=== PATIENT | female | born 1990 | race American Indian/Alaskan Native ===

== ENCOUNTER 2018-05-12 13:30 | Outpatient (CLI) | payer OTHER ==
[2018-05-12 15:00] LABS: Basophils % (Auto) 0.3 % (0.0-1.8); Eosinophils # (Auto) 0.1 K/mm3 (0.0-0.4); Eosinophils % (Auto) 0.8 % (0.0-4.3); Hematocrit 38.7 % (30.3-42.9); Hemoglobin 13.4 gm/dl (10.1-14.3); Lymphocytes # (Auto) 0.9 K/mm3 (1.2-5.4); Lymphocytes % (Auto) 13.7 % (13.4-35.0); Mean Corpuscular HGB Conc 35 % (30-34); Mean Corpuscular Hemoglobin 29 pg (28-32); Mean Corpuscular Volume 83 fl (79-97); Monocytes # (Auto) 0.7 K/mm3 (0.0-0.8); Platelet Count 186 K/mm3 (140-440); Red Blood Count 4.65 M/mm3 (3.65-5.03); Red Cell Distribution Width 14.4 % (13.2-15.2)
[2018-05-12 15:13] VITALS: BP 120/57
[2018-05-12 15:14] LABS: Alanine Aminotransferase 16 units/L (7-56); Uric Acid 5.1 mg/dL (3.5-7.6)
[2018-05-12 15:42] LABS: Bilirubin,Urine NEG (Negative); Blood,Urine NEG (Negative); Color,Urine Straw (Yellow); Protein,Urine <15 mg/dL mg/dL (Negative); Urobilinogen,Urine < 2.0 mg/dL (<2.0); WBC,Urine < 1.0 /HPF (0.0-6.0)
--- NOTE | 2018-05-12 18:25 | Ultrasound Report ---
FINAL REPORT EXAM: US OB BPP WO NON-STRESS HISTORY: bpp TECHNIQUE: Ultrasound examination of the gravid uterus for biophysical profile evaluation of the fetus PRIORS: 05/04/2018 FINDINGS: There is a single viable intrauterine with documented cardiac activity. The amniotic fluid volume is normal. heart rate: 138 bpm Amniotic fluid index: 19.0 cm position: Cephalic Placental position: Anterior Evaluation for biophysical profile yields the following score as reported by technologist from real-time exam: respiratory motion (minimum one episode): 2 Gross body movement (minimum 3 movements): 2 tone (minimum one flexion and extension): 2 Amniotic fluid volume (at least 2 cm pocket in vertical diameter): 2 IMPRESSION: Single viable intrauterine with 8/8 biophysical profile score during the sonographic evaluation
--- NOTE | 2018-05-12 18:56 | Ultrasound Report ---
FINAL REPORT EXAM: US OB LIMITED HISTORY: hitesh TECHNIQUE: Ultrasound evaluation of the gravid uterus PRIORS: Biophysical profile 05/12/2018 FINDINGS: There is a single viable intrauterine with documented cardiac activity. Heart rate: 138 beats per minute position: Cephalic Amniotic fluid index: 19.0cm IMPRESSION: Amniotic fluid index 19.0 cm.
== END 2018-05-12 18:34 | disposition home or self-care (01) ==
LOC: TRG 13:30
PROVIDERS: ATTEND Obstetrics & Gynecology
DX: O47.03 False labor before 37 completed weeks of gestation, third trimester (principal); Z3A.35 35 weeks gestation of pregnancy
CPT/HCPCS: 36415; 76815; 76819; 81001; 82565; 83615; 84450; 84460; 84550; 85025

== ENCOUNTER 2020-10-22 15:11 | Inpatient (IN) | payer OTHER ==
[2020-10-22] MEDS ORDERED: LACTATED RINGERS 1,000 ML ONE (15:13)
--- NOTE | 2020-10-22 18:07 | History and Physical Report ---
History of Present Illness Date of examination: 10/22/20 Date of admission: 10/22/20 15:11 Chief complaint: Presents for scheduled induction of labor for GDM. History of present illness: Early entry to care at 11 1/7 weeks to [facility]. course complicated by GDM (diet controlled; following with [facility]), labile BPs (baseline labs within normal limits; taking ASA 81 mg daily), and pericardial effusion (3mm noted by [facility] at 31 weeks). Past History Past Medical History: other (Vitamin D deficiency) Past Surgical History: no surgical history LASER ENGINEER History: herpes (HSV2 positive ) Family/Genetic History: hypertension (paternal grandmother) Social history: no significant social history - Obstetrical History Expected Date of Delivery: 10/27/20 Actual Gestation: 39 Week(s) 2 Day(s) : 2 Para: 1 Hx # Term Pregnancies: 1 Number of Pregnancies: 0 Spontaneous Abortions: 0 Induced : 0 Number of Living Children: 1 #1 Gender: Male year: 2020 Birthweight: 3.572 kg Method of Delivery: Vaginal Gestational age at delivery: 38 Complications: none Medications and Allergies Allergies Allergy/AdvReac Type Severity Reaction Status Date / Time No Known Allergies Allergy Verified 05/16/18 16:07 Home Medications Medication Instructions Recorded Confirmed Last Taken Type Aspirin [Aspirin BABY CHEW TAB] 81 mg PO QDAY 05/16/18 10/22/20 10/22/20 10:00 History 1 tab Formula Tablet 1 tab PO DAILY 05/29/18 10/22/20 10/22/20 10:00 History 500 mg Valtrex 500 mg PO BID 05/29/18 10/22/20 10/22/20 10:00 History Review of Systems All systems: negative - Vital Signs Vital signs: Vital Signs Temp Pulse Resp BP Pulse Ox 98.0 F 80 18 135/75 98 10/22/20 15:21 10/22/20 15:21 10/22/20 15:21 10/22/20 15:21 10/22/20 15:21 Temp Pulse Resp BP Pulse Ox 98.0 F 80 18 135/75 98 10/22/20 15:21 10/22/20 15:21 10/22/20 15:21 10/22/20 15:10/22/20 15:21 - Physical Exam Breasts: Positive: normal Cardiovascular: Regular rate Lungs: Positive: Clear to auscultation, Normal air movement Abdomen: Positive: normal appearance, soft Genitourinary (Female): Positive: normal external genitalia, normal perenium Vagina: Positive: normal moisture Uterus: Positive: enlarged Anus/Rectum: Positive: normal perianal skin Extremities: Positive: normal - Obstetrical FHR: category 2 FHR comments: Minimal variability, FHR baseline 146, no accels, no decels. Variability improved with left lateral maternal positioning. Uterine Contraction Monitor Mode: External Cervical Dilatation: 3 (intact) Cervical Effacement Percentage: 40 station: -4 Uterine Contraction Frequency (min): 2-4 Uterine Contraction Duration: 60-90 Uterine Contraction Pattern: Irregular Uterine Tone Measurement Phase: Resting Uterine Contraction Intensity: Mild Results All other labs normal. Assessment and Plan A: IUP at 39 2/7 weeks Category II tracing GDM A1 Pericardial Effusion GBS Negative P: Admit to L&D per routine orders Accuchecks q 6 hrs Pitocin Induction Consult NICU for delivery regarding pericardial effusion
[2020-10-22] MEDS ORDERED: LIDOCAINE (2%) 20 MG/1 ML VIAL 20 ML MDV INFILTRATI ONE (18:10)
[2020-10-22] MEDS ORDERED: ePHEDrine SULFATE 50 MG/1 ML INJ IV PRN (18:10)
[2020-10-22] MEDS ORDERED: MINERAL OIL 30 ML ORAL LIQD PO PRN (18:10)
[2020-10-22] MEDS ORDERED: TERBUTALINE 1 MG/1 ML INJ SUB-Q PRN (18:10)
[2020-10-22 18:42] LABS: Hemoglobin 13.8 gm/dl (10.1-14.3); Mean Corpuscular HGB Conc 35 % (30-34); Mean Corpuscular Volume 84 fl (79-97); Platelet Count 162 K/mm3 (140-440); Red Blood Count 4.78 M/mm3 (3.65-5.03); Red Cell Distribution Width 13.8 % (13.2-15.2)
[2020-10-22] MEDS ORDERED: OXYTOCIN DRIP 30 UNITS/500 ML BAG IV SCH ×2 (19:00)
[2020-10-22] MEDS: LACTATED RINGERS 1,000 ML IV SCH (23:26)
[2020-10-23] MEDS: BUTORPHANOL 2 MG/1 ML INJ IV PRN ×3 (03:29→15:54)
--- NOTE | 2020-10-23 14:02 | Progress Note ---
Assessment and Plan A: IUP@ 39.3 wks IOL for GDM (diet controlled) Hx of Laible b/ps pericardial eff 3mm@ 31 wks P: Continue monitoring Alert NICU Start Pitocin per protocal Pain med /Epidural prn Anticipate Subjective - Subjective Date of service: 10/23/20 Principal diagnosis: IUP 39.3 wks Patient reports: movement normal Objective - Vital Signs Vital Signs: Vital Signs - 12hr 10/23/20 10/23/20 10/23/20 03:29 06:45 06:46 Temperature 98 F Pulse Rate 55 L 55 L Respiratory 20 20 Rate Blood Pressure 146/91 136/82 Blood Pressure 136/82 [Left] 10/23/20 10/23/20 10/23/20 07:01 11:23 13:37 Temperature 98.0 F 98.3 F Pulse Rate 63 66 Respiratory 18 18 18 Rate Blood Pressure 136/78 126/80 Blood Pressure 136/78 126/80 [Left] - Exam Breasts: normal Abdomen: Present: normal appearance, soft, normal bowel sounds, other (gravid) Vulva: both: normal Uterus: Present: normal, other (gravid) FHR: auscultation normal, category 1 Uterine Contraction Monitor Mode: External Cervical Dilatation: 3 Cervical Effacement Percentage: 40 station: -4 Uterine Contraction Frequency (min): irreg Uterine Contraction Pattern: Irregular Uterine Tone Measurement Phase: Resting Uterine Contraction Intensity: Mild Extremities: normal - Labs Labs: Abnormal Labs 10/22/20 10/23/20 10/23/20 15:25 06:07 12:05 MCHC 35 H POC Glucose 67 L 68 L Laboratory Results - last 24 hr 10/22/20 10/22/20 10/22/20 15:25 15:25 17:51 WBC 5.8 RBC 4.78 Hgb 13.8 Hct 40.0 MCV 84 MCH 29 MCHC 35 H RDW 13.8 Plt Count 162 POC Glucose 75 Blood Type B POSITIVE Antibody Screen Negative 10/23/20 10/23/20 10/23/20 00:25 06:07 12:05 WBC RBC Hgb Hct MCV MCH MCHC RDW Plt Count POC Glucose 80 67 L 68 L Blood Type Antibody Screen
[2020-10-23] MEDS: LACTATED RINGERS 1,000 ML IV SCH (14:42)
[2020-10-23] MEDS ORDERED: OXYTOCIN 10 UNIT/1 ML INJ ONE (17:00)
[2020-10-23] MEDS ORDERED: MAGNESIUM HYDROXIDE (MOM) ORAL LIQD UDC PO PRN (17:23)
[2020-10-23] MEDS ORDERED: PROMETHAZINE 25 MG TAB PO PRN (17:23)
[2020-10-23] MEDS ORDERED: PROMETHAZINE 25 MG RECT SUPP PR PRN (17:23)
[2020-10-23] MEDS ORDERED: ONDANSETRON 4 MG/2 ML INJ IV PRN (17:23)
[2020-10-23] MEDS ORDERED: diphenhydrAMINE 25 MG CAP PO PRN (17:23)
[2020-10-23] MEDS ORDERED: WITCH HAZEL/ GLYCERIN PAD TP PRN (17:23)
[2020-10-23] MEDS ORDERED: LANOLIN/ZINC/DIMETHICONE (LANSINOH) 7 GM TP PRN (17:23)
--- NOTE | 2020-10-23 19:21 | Procedure Note ---
OB Delivery Note - Delivery Date of Delivery: 10/23/20 Surgeon: YNES CHANDLER Estimated blood loss: other (400 cc) - Vaginal Delivery presentation: vertex Delivery position: OA Intrapartum events: mult. late decelerations, mult.variable deceleratio Delivery induction: oxytocin Delivery augmentation: rupture of membranes Delivery monitor: external FHT, external uterine Route of delivery: Delivery placenta: spontaneous Delivery cord: nuchal cord, 3 umbilical vessels, other (tight nuchal cord was cut at perineum) Episiotomy: none Delivery laceration: none Anesthesia: none Delivery comments: Called to for delivery. SVE 10/100%/+1 and pt was pushing. of a live female at 1656. Spontaneous delivery of infant's head.Tight nuchal cord x 1 was clamped x2 and cut at the perineum then the rest of 's body was delivered with ease. was given to awaiting NICU nurse after delivery for an asses. 2//8. Spontaneous delivery of an intact placenta with 3CV. FF@ U2 with fundal massage and IM Pitocin. An exploration of tears revealed none. EBL 400cc. FW 3309 Gms. Mom and baby was left in stable condition with nurses. - A at 1 minute: 2 at 5 minutes: 7 Infant Gender: Female ( 2/7/8)
[2020-10-23] MEDS: IBUPROFEN 600 MG TAB PO SCH (22:08)
--- NOTE | 2020-10-24 | Procedure Note ---
OB Delivery Note - Delivery Date of Delivery: 10/23/20 Surgeon: YNES CHANDLER Estimated blood loss: other (400cc) - Vaginal Delivery presentation: vertex Delivery position: OA Intrapartum events: mult.variable deceleratio, other(please specify) (GDM) Delivery induction: oxytocin Delivery monitor: external FHT, external uterine Route of delivery: Delivery placenta: spontaneous Delivery cord: nuchal cord Episiotomy: none Delivery laceration: none Anesthesia: intravenous Delivery comments: Called to for delivery. SVE 10/100%/+1 and pt was pushing. of a live female . a
[2020-10-24] MEDS: IBUPROFEN 600 MG TAB PO SCH ×4 (05:10→22:10)
--- NOTE | 2020-10-24 11:15 | Progress Note ---
Assessment and Plan continue routine PP care Abram Garcia MD Subjective - Subjective Date of service: 10/24/20 Principal diagnosis: IUP 39.3 wks Interval history: PPD#2 no complaints at bedside ambulatory, tolerating general diet lochia mild to moderate Patient reports: appetite normal, voiding normally, pain well controlled, ambulating normally : doing well Objective - Vital Signs Latest vital signs: Vital Signs Temp Pulse Resp BP BP Pulse Ox 10/24/20 09:13 98.0 F 94 H 18 123/68 98 10/24/20 04:15 98.0 F 85 20 105/51 100 10/24/20 01:25 98.9 F 87 20 121/77 98 10/23/20 19:29 33 L 57 L 10/23/20 19:28 66 132/80 10/23/20 19:25 68 100 10/23/20 19:20 83 100 10/23/20 19:15 70 99 10/23/20 19:13 72 92 10/23/20 19:10 89 99 10/23/20 19:05 93 H 100 10/23/20 19:00 68 100 10/23/20 18:55 63 100 10/23/20 18:50 68 100 10/23/20 18:45 70 100 10/23/20 18:40 68 100 10/23/20 18:35 68 100 10/23/20 18:30 67 100 10/23/20 18:25 64 125/86 100 10/23/20 18:20 65 100 10/23/20 18:15 65 100 10/23/20 18:10 65 121/85 100 10/23/20 18:05 75 100 10/23/20 18:00 65 100 10/23/20 17:55 75 121/81 96 10/23/20 17:50 66 100 10/23/20 17:45 77 100 10/23/20 17:44 77 94 10/23/20 17:40 69 110/74 99 10/23/20 17:35 87 100 10/23/20 17:30 67 100 10/23/20 17:25 68 127/73 99 10/23/20 17:20 78 100 10/23/20 17:19 98.3 F 10/23/20 17:15 93 H 99 10/23/20 17:10 94 H 147/76 97 10/23/20 17:06 83 135/69 10/23/20 16:52 76 135/68 10/23/20 15:54 20 10/23/20 15:52 97.8 F 63 20 133/70 133/70 10/23/20 15:51 100 H 164/90 10/23/20 13:37 18 10/23/20 11:23 98.3 F 66 18 126/80 126/80 Intake and Output 10/23/20 10/24/20 10/24/20 23:59 07:59 15:59 Output Total 1800 Balance -1800 Output: Urine 1800 Void 1800 Other: Total, Output Amount 900 # Voids Void 1 Estimated Blood Loss 400 - Exam Breasts: Present: deferred Cardiovascular: Present: Regular rate Lungs: Present: Clear to auscultation Abdomen: Present: normal appearance, normal bowel sounds Uterus: Present: fundal height at umbilicus Extremities: Present: normal - Labs Labs: Abnormal lab results 10/23/20 Range/Units 12:05 POC Glucose 68 L (70-105) mg/dL
[2020-10-24 15:56] LABS: Hematocrit 34.9 % (30.3-42.9); Hemoglobin 12.2 gm/dl (10.1-14.3)
[2020-10-25] MEDS: IBUPROFEN 600 MG TAB PO SCH ×2 (05:18)
[2020-10-25 08:49] VITALS: BP 114/78
--- NOTE | 2020-10-25 12:06 | Progress Note ---
Assessment and Plan A: day 2 S/P . P: Discharge patient home today. Discussed with patient discharge instructions and warning signs. Advised patient to avoid intercourse, lifting, heavy housework. Advised patient to continue to take her vitamins at home. Advised patient to follow up at [facility] within 1 week for BP check. Patient voiced understanding of all instructions. Subjective - Subjective Date of service: 10/25/20 Principal diagnosis: day 2 S/P Interval history: Patient requests discharge home today. Patient reports: appetite normal, voiding normally, pain well controlled, flatus, ambulating normally, no dizzy ambulation, no nauseated [place]: doing well Objective - Vital Signs Latest vital signs: Vital Signs Temp Pulse Resp BP BP Pulse Ox 10/25/20 08:15 98.4 F 88 18 114/78 100 10/25/20 01:02 98.0 F 78 20 110/57 99 10/24/20 16:30 98.2 F 92 H 18 110/64 99 10/24/20 13:20 15 Intake and Output 10/24/20 10/25/20 10/25/20 23:59 07:59 15:59 Intake Total 600 300 240 Balance 600 300 240 Intake: Oral 240 Intake, Free Water 600 300 Other: Total, Intake Amount 240 # Voids Void 4 1 - Exam Cardiovascular: Present: Regular rate, No murmurs Lungs: Present: Clear to auscultation Abdomen: Present: normal appearance, soft. Absent: distention, tenderness, guarding, rigidity Uterus: Present: normal, firm, fundal height below umbilicus. Absent: bogginess, tenderness Extremities: Present: normal. Absent: tenderness, edema
--- NOTE | 2020-10-25 12:08 | Discharge Summary ---
Providers - Providers Date of Admission: 10/22/20 15:11 Date of discharge: 10/25/20 Attending physician: EDILMA WEBB Primary care physician: CIERA ALVARENGA JR, MD Hospitalization Reason for admission: induction of labor Delivery: Episiotomy: none Laceration: none Other procedures: none complications: none Discharge diagnosis: IUP at term delivered [place] baby: female Pertinent studies: Labs Hospital course: Stable hospital course. Condition at discharge: Good Disposition: DC-01 TO HOME OR SELFCARE - Discharge Diagnoses (1) Term delivered Status: Acute Plan - Discharge Medications Prescriptions: Ibuprofen [Motrin] 600 mg PO Q8H PRN #60 tablet PRN Reason: Pain - Provider Discharge Summary Activity: routine, no sex for 6 weeks, no heavy lifting 4 weeks, no strenuous exercise Diet: routine Instructions: routine Additional instructions: Continue to take your vitamin every day at home. Call your doctor immediately for: * Fever > 100.5 * Heavy vaginal bleeding ( >1 pad per hour) * Severe persistent headache * Shortness of breath * Reddened, hot, painful area to leg or breast - Follow up plan Follow up: CIERA ALVARENGA JR, MD [Primary Care Provider] - 7 Days Forms: [facility] Discharge Summary
== END 2020-10-25 16:11 | disposition home or self-care (01) | DRG 775 ==
LOC: LD 15:11 → OB 10-23 20:10
PROVIDERS: ADMIT Obstetrics & Gynecology; ATTEND Obstetrics & Gynecology
PROC: 10E0XZZ Delivery of Products of Conception, External Approach (ICD-10-PCS; principal; 2020-10-23)
PROC: 3E033VJ Introduction of Other Hormone into Peripheral Vein, Percutaneous Approach (ICD-10-PCS; 2020-10-23)
DX: O24.429 Gestational diabetes mellitus in childbirth, unspecified control (principal); O69.1XX0 Labor and delivery complicated by cord around neck, with compression, not applicable or unspecified; O76 Abnormality in fetal heart rate and rhythm complicating labor and delivery; Z20.822 Contact with and (suspected) exposure to COVID-19; Z3A.39 39 weeks gestation of pregnancy; Z37.0 Single live birth; Z82.49 Family history of ischemic heart disease and other diseases of the circulatory system
CPT/HCPCS: 36415; 82962; 85014; 85018; 85027; 86850; 86900; 86901; 88307; 96372; G0378; J0595; J2590; J7120; U0003